=== PATIENT | female | born 2000 | race Two or more races ===

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

== ENCOUNTER 2021-03-26 12:51 | Emergency (ER) | payer OTHER ==
--- NOTE | 2021-03-26 14:12 | XR ---
EXAMINATION TYPE: PA chest with left rib series, 5 views DATE OF EXAM: 03/26/2021 Comparison: 05/06/2018 Clinical History: 20 year-old female with left anterior rib pain Findings: The cardiomediastinal silhouette, aorta, and pulmonary vasculature are within normal limits. Lungs and pleural spaces are clear. No acute or healing left-sided rib fracture or other bony abnormality identified. Impression: No acute cardiopulmonary process. No discrete radiographic abnormality of the left-sided ribs.
[2021-03-26 14:35] LABS: Appearance,Urine Turbid (Clear); Bacteria,Urine Rare /hpf; Bilirubin,Urine Negative (Negative); Blood,Urine Negative (Negative); Color,Urine Yellow; Glucose,Urine (UA) Negative (Negative); Hyaline Casts,Urine 3 /lpf (0-2); Ketones,Urine Negative (Negative); Leukocyte Esterase,Urine Large (Negative); Mucus,Urine Moderate /hpf; Nitrite,Urine Negative (Negative); PH, Urine 5.5 (5.0-8.0); Protein,Urine 1+ (Negative); RBC,Urine 10 /hpf (0-5); Specific Gravity,Urine 1.028 (1.001-1.035); Squamous Epithelial Cell,Urine 85 /hpf (0-4); Urobilinogen,Urine <2.0 mg/dL (<2.0); WBC,Urine 20 /hpf (0-5)
--- NOTE | 2021-03-26 14:53 | ED ---
Abdominal Pain HPI - General Chief Complaint: Abdominal Pain Stated Complaint: upper abd pain/bulge & near syncope Time Seen by Provider: 03/26/21 13:12 Source: patient Mode of arrival: ambulatory Limitations: no limitations - History of Present Illness Initial Comments: 20-year-old female presents to the emergency department with a chief complaint of abdominal pain on the left side. Patient reports the pain started about 2 days ago. Patient reports it feels like it is in the ribs rather than the abdomen. She did report feeling nauseous when there was a sudden onset of pain in the same state positional in nature. She can feel a "lump" on the left lower ribs. She denies any popping sensation in the region. She denies any diarrhea or constipation. Denies any urinary or vaginal symptoms. Denies any chest pain or shortness of breath. - Related Data Previous Rx's Medication Instructions Recorded Cephalexin [Keflex] 500 mg PO Q12HR #20 cap 10/16/17 Metoclopramide HCl [Reglan] 10 mg PO Q6HR PRN #15 tablet 05/06/18 Allergies Allergy/AdvReac Type Severity Reaction Status Date / Time No Known Allergies Allergy Verified 03/26/21 13:07 Review of Systems ROS Statement: Those systems with pertinent positive or pertinent negative responses have been documented in the HPI. ROS Other: All systems not noted in ROS Statement are negative. Past Medical History Past Medical History: No Reported History History of Any Multi-Drug Resistant Organisms: None Reported Past Surgical History: Adenoidectomy Past Psychological History: No Psychological Hx Reported Smoking Status: Never smoker Past Alcohol Use History: Occasional Past Drug Use History: None Reported General Exam Limitations: no limitations General appearance: alert, in no apparent distress Head exam: Present: atraumatic, normocephalic, normal inspection Eye exam: Present: normal appearance, PERRL, EOMI Pupils: Present: normal accommodation ENT exam: Present: normal exam, normal oropharynx, mucous membranes moist Neck exam: Present: normal inspection, full ROM. Absent: tenderness Respiratory exam: Present: normal lung sounds bilaterally, chest wall tenderness (Left lower ribs tenderness.). Absent: respiratory distress, wheezes, rales, rhonchi, stridor Cardiovascular Exam: Present: regular rate, normal rhythm, normal heart sounds. Absent: systolic murmur GI/Abdominal exam: Present: soft, tenderness (Tenderness on the left upper quadrant region over the ridge of the ribs. No abdominal tenderness). Absent: distended, guarding, rebound, rigid Extremities exam: Present: normal inspection, full ROM. Absent: tenderness Back exam: Present: normal inspection, full ROM. Absent: tenderness, CVA tenderness (R), CVA tenderness (L) Neurological exam: Present: alert, oriented X3 Psychiatric exam: Present: normal affect, normal mood Skin exam: Present: warm, dry, intact, normal color Course Vital Signs 03/26/21 03/26/21 13:04 15:23 Temperature 98.3 F Pulse Rate 89 70 Respiratory 18 17 Rate Blood Pressure 120/79 120/75 O2 Sat by Pulse 98 98 Oximetry Medical Decision Making - Medical Decision Making 20-year-old female presents to the emergency department with a chief complaint of abdominal pain on the left side. On physical examination, tenderness over the left lower several ribs. This appears to more chest wall pain rather than abdominal pain. Patient's mother was requesting STD testing and UA.Trichomonas is negative. UA was a contaminated sample. Patient states there was not a clean catch sample. It does show elevated leukocyte esterase or blood cells. Patient however does not appear to complain of any UTI like or vaginal symptoms. So I will not treat the patient. Gonorrhea and chlamydia pending. Offered treatment, she declined. Advised the patient to follow with primary care physician. Return parameters were thoroughly discussed with patient is understanding and agreeable. Case discussed with Dr. Chun. - Lab Data Lab Results 03/26/21 03/26/21 03/26/21 Range/Units 13:57 13:57 13:57 Urine Color Yellow Urine Appearance Turbid H (Clear) Urine pH 5.5 (5.0-8.0) Ur Specific [place] 1.028 (1.001-1.035) Urine Protein 1+ H (Negative) Urine Glucose (UA) Negative (Negative) Urine Ketones Negative (Negative) Urine Blood Negative (Negative) Urine Nitrite Negative (Negative) Urine Bilirubin Negative (Negative) Urine Urobilinogen <2.0 (<2.0) mg/dL Ur Leukocyte Esterase Large H (Negative) Urine RBC 10 H (0-5) /hpf Urine WBC 20 H (0-5) /hpf Ur Squamous Epith Cells 85 H (0-4) /hpf Urine Bacteria Rare H (None) /hpf Hyaline Casts 3 H (0-2) /lpf Urine Mucus Moderate H (None) /hpf Urine HCG, Qual Not Detected (Not Detectd) Trichomonas Ag (Rapid) Negative (Negative) Disposition Clinical Impression: Chest wall pain Disposition: HOME SELF-CARE Condition: Stable Instructions (If sedation given, give patient instructions): Chest Pain (DC) Additional Instructions: Please return to the Emergency Department if symptoms worsen or any other concerns. Is patient prescribed a controlled substance at d/c from ED?: No Referrals: None,Stated [Primary Care Provider] - 1-2 days Time of Disposition: 15:09
[2021-03-26 15:24] VITALS: BP 120/75; PULSE 70; RESP 17; TEMP 98.3
== END 2021-03-26 15:24 | disposition home or self-care (01) ==
LOC: EC 12:51
DX: R07.89 Other chest pain (principal); R10.12 Left upper quadrant pain; R11.0 Nausea
CPT/HCPCS: 81001; 81025; 87086; 87491; 87591; 87808; 99284

== ENCOUNTER → 2021-05-25 | Outpatient (CLI) | payer OTHER ==
[2021-05-25 22:37] LABS: HCT 36.5 % (37.2-46.3); HGB 12.8 g/dL (12.0-15.0); MCH 32.8 pg (27.0-32.0); MCHC 35.1 g/dL (32.0-37.0); MCV 93.6 fL (80.0-97.0); Platelet Count 331 X 10*3/uL (140-440); WBC 12.37 X 10*3/uL (4.50-10.00)
[2021-05-26 02:34] LABS: Hepatitis B Surface Antigen Nonreactive (Nonreactive)
[2021-05-26 06:37] LABS: HIV 2 AB Non-Reactive (Non-Reactive); HIV AB P24 Non-Reactive (Non-Reactive); HIV P24 AG Non-Reactive (Non-Reactive)
== END | disposition home or self-care (01) ==
LOC: LABWHC1 15:32
PROVIDERS: ATTEND Physician Assistant
DX: Z34.90 Encounter for supervision of normal pregnancy, unspecified, unspecified trimester (principal)
CPT/HCPCS: 36415; 84702; 85027; 86762; 86850; 86900; 86901; 87340; 87390

== ENCOUNTER 2021-06-19 08:07 | Emergency (ER) | payer OTHER ==
[2021-06-19 08:24] VITALS: TEMP 98.1
[2021-06-19] MEDS ORDERED: SODIUM CHLORIDE 0.9% 1,000 ML IV ONE (08:27)
[2021-06-19 09:04] LABS: Basophils % (A) 0 %; Eosinophils % (A) 0 %; HCT 38.2 % (34.0-46.0); HGB 13.1 gm/dL (11.4-16.0); Lymphocytes # (A) 2.1 k/uL (1.0-4.8); Lymphocytes % (A) 17 %; MCH 32.7 pg (25.0-35.0); MCHC 34.4 g/dL (31.0-37.0); Mean Platelet Volume 6.7; Monocytes # (A) 0.6 k/uL (0-1.0); Monocytes % (A) 5 %; Neutrophils # (A) 9.5 k/uL (1.3-7.7); Neutrophils % (A) 76 %; Platelet Count 309 k/uL (150-450); RBC 4.02 m/uL (3.80-5.40); WBC 12.5 k/uL (3.8-10.6)
[2021-06-19 09:21] LABS: Appearance,Urine Cloudy (Clear); Bacteria,Urine Occasional /hpf; Bilirubin,Urine Negative (Negative); Blood,Urine Large (Negative); Color,Urine Yellow; Glucose,Urine (UA) Negative (Negative); Ketones,Urine Negative (Negative); Leukocyte Esterase,Urine Moderate (Negative); Mucus,Urine Few /hpf; Nitrite,Urine Negative (Negative); Protein,Urine 1+ (Negative); RBC,Urine >182 /hpf (0-5); Specific Gravity,Urine 1.028 (1.001-1.035); Squamous Epithelial Cell,Urine 23 /hpf (0-4); Urobilinogen,Urine <2.0 mg/dL (<2.0); WBC,Urine 29 /hpf (0-5)
[2021-06-19 09:30] LABS: African American GFR (CKD) >90 (>60 ml/min/1.73 sqM); Albumin 4.4 g/dL (3.5-5.0); Anion Gap 9 mmol/L; Blood Urea Nitrogen 10 mg/dL (7-17); Calcium 10.2 mg/dL (8.4-10.2); Carbon Dioxide 23 mmol/L (22-30); Chloride 105 mmol/L (98-107); Glucose 89 mg/dL (74-99); Non-African American GFR(CKD) >90 (>60 ml/min/1.73 sqM); Potassium 4.1 mmol/L (3.5-5.1); Sodium 137 mmol/L (137-145); Total Protein 7.9 g/dL (6.3-8.2)
[2021-06-19 09:31] LABS: ALT 27 U/L (4-34); AST 28 U/L (14-36); Alkaline Phosphatase 68 U/L (38-126); Total Bilirubin 0.4 mg/dL (0.2-1.3)
--- NOTE | 2021-06-19 09:53 | US ---
EXAMINATION TYPE: Ultrasound OB <= 14 week fetus DATE OF EXAM: 06/19/2021 9:22 AM COMPARISON: NONE CLINICAL HISTORY: 21-year-old female pain. Bleeding x 1 day EXAM PERFORMED: Transabdominal (TA) FINDINGS: EXAM MEASUREMENTS: GESTATIONAL AGE / DATING Physician Established: (7 weeks/4 days) EDC: 02/01/2022 Dates by LMP: (9 weeks/0 days) EDC: 01/22/2022 Dates by First Scan: No previous this is first scan Dates by Current Scan for: (7 weeks/0 days +/- 4 days) EDC: 02/05/2022 MATERNAL ANATOMY Uterus: 8.5 x 6.2 x 7.0cm Right Ovary: 3.1 x 1.7 x 1.8cm Left Ovary: 3.3 x 2.8 x 2.8cm Post CDS / Adnexa: wnl Presence of free fluid: wnl Presence of corpus luteal cyst: left ovary: 2.1 x 1.7 x 1.7cm Presence of subchorionic bleed: 1.7 x 1.2 x 1.6cm right of gestational sac GESTATION / SURVEY CRL: 1.0cm (7 weeks/0 days) MSD: ( weeks/ days) Yolk Sac (normal less than 6mm): 0.4cm Heart Rate: 159 bpm Rhythm: Normal IUP: Viable IUP Date of LMP: 04/17/2021 Beta HcG (if available): Not available at time of exam Laboratory Analyst notes: Viable single IUP measuring 7 weeks 0 days with a heart rate o 159bpm and an estim ated delivery date of 02/05/2022, probable 1.7cm subchorionic bleed. IMPRESSION: 1. Single live intrauterine with established gestational age of 7 weeks 4 days. Current ult rasound biometry is smaller and just barely concordant (7 weeks 0 days). 2. Small to moderate-sized perigestational bleed measuring 1.7 cm toward the right side of the gestat ional sac. Follow-up as clinically indicated. 3. A 2.1 cm left corpus luteal cyst. 4. Otherwise, complete survey recommended at 18-20 weeks.
[2021-06-19] MEDS ORDERED: Rhogam IMMUNE GLOBULIN 1,500 UNIT/1 ML IM ONE (10:05)
[2021-06-19] MEDS ORDERED: cefTRIAXone IN SWFI 1,000 MG/10 ML SYRINGE IVP STA (10:22)
--- NOTE | 2021-06-19 10:27 | ED ---
Female Urogenital HPI - General Chief complaint: Vaginal Bleeding Stated complaint: 8 wks preg, vag bleeding Time Seen by Provider: 06/19/21 08:27 Source: patient, RN notes reviewed Mode of arrival: ambulatory Limitations: physical limitation - History of Present Illness Initial comments: Patient is a 21-year-old female that presents to the emergency department complaining of vaginal bleeding times one. She notes that she is approximately 8 weeks and has called her LABORATORY WORKER is supple appointment but has not been able to get in yet. She notes that this morning while walking to her car she noted some bleeding so she came to the emergency room to get evaluated. She denied any abdominal cramping or pain. She denied any falls or trauma. She was otherwise well-appearing in no apparent distress. She denied chest pain shortness breath headache nausea vomiting diarrhea constipation fever fatigue chills. Last Menstrual Period: 04/17/21 - Related Data Previous Rx's Medication Instructions Recorded Cephalexin [Keflex] 500 mg PO Q12HR #20 cap 10/16/17 Metoclopramide HCl [Reglan] 10 mg PO Q6HR PRN #15 tablet 05/06/18 Allergies Allergy/AdvReac Type Severity Reaction Status Date / Time No Known Allergies Allergy Verified 06/19/21 08:24 Review of Systems ROS Statement: Those systems with pertinent positive or pertinent negative responses have been documented in the HPI. ROS Other: All systems not noted in ROS Statement are negative. Past Medical History Past Medical History: No Reported History History of Any Multi-Drug Resistant Organisms: None Reported Past Surgical History: Adenoidectomy Past Psychological History: No Psychological Hx Reported Smoking Status: Never smoker Past Alcohol Use History: Occasional Past Drug Use History: None Reported General Exam Limitations: physical limitation General appearance: alert, in no apparent distress Head exam: Present: atraumatic, normocephalic, normal inspection Eye exam: Present: normal appearance, PERRL, EOMI. Absent: scleral icterus, conjunctival injection, periorbital swelling ENT exam: Present: normal exam, mucous membranes moist Neck exam: Present: normal inspection Respiratory exam: Present: normal lung sounds bilaterally. Absent: respiratory distress, wheezes, rales, rhonchi, stridor Cardiovascular Exam: Present: regular rate, normal rhythm, normal heart sounds. Absent: systolic murmur, diastolic murmur, rubs, gallop, clicks GI/Abdominal exam: Present: soft, normal bowel sounds. Absent: distended, tenderness, guarding, rebound, rigid Extremities exam: Present: normal inspection, full ROM, normal capillary refill. Absent: tenderness, pedal edema, joint swelling, calf tenderness Neurological exam: Present: alert, oriented X3 Psychiatric exam: Present: normal affect, normal mood Skin exam: Present: warm, dry, intact, normal color. Absent: rash Course Vital Signs 06/19/21 08:20 Temperature 98.1 F Pulse Rate 84 Respiratory 18 Rate Blood Pressure 108/71 O2 Sat by Pulse 100 Oximetry Medical Decision Making - Medical Decision Making 21-year-old female with vaginal bleeding 8 weeks . Labs, ultrasound, 1 L normal saline ordered. Labs: CBC and CMP unremarkable, urinalysis shows many red and white blood cells with occasional bacteria. Type and screen showed patient was Rh-, RhoGAM ordered. 1 g Rocephin ordered for possible UTI. Patient is agreeable to discharge home with follow-up to primary care and LABORATORY WORKER Case discussed with Dr. Shaw, patient can discharge home with follow-up to LABORATORY WORKER. - Lab Data Result diagrams: 06/19/21 08:44 06/19/21 08:44 Lab Results 06/19/21 06/19/21 06/19/21 Range/Units 08:44 08:44 08:44 WBC 12.5 H (3.8-10.6) k/uL RBC 4.02 (3.80-5.40) m/uL Hgb 13.1 (11.4-16.0) gm/dL Hct 38.2 (34.0-46.0) % MCV 95.0 (80.0-100.0) fL MCH 32.7 (25.0-35.0) pg MCHC 34.4 (31.0-37.0) g/dL RDW 12.0 (11.5-15.5) % Plt Count 309 (150-450) k/uL MPV 6.7 Neutrophils % 76 % Lymphocytes % 17 % Monocytes % 5 % Eosinophils % 0 % Basophils % 0 % Neutrophils # 9.5 H (1.3-7.7) k/uL Lymphocytes # 2.1 (1.0-4.8) k/uL Monocytes # 0.6 (0-1.0) k/uL Eosinophils # 0.0 (0-0.7) k/uL Basophils # 0.0 (0-0.2) k/uL Sodium (137-145) mmol/L Potassium (3.5-5.1) mmol/L Chloride (98-107) mmol/L Carbon Dioxide (22-30) mmol/L Anion Gap mmol/L BUN (7-17) mg/dL Creatinine (0.52-1.04) mg/dL Est GFR (CKD-EPI)AfAm (>60 ml/min/1.73 sqM) Est GFR (CKD-EPI)NonAf (>60 ml/min/1.73 sqM) Glucose (74-99) mg/dL Calcium (8.4-10.2) mg/dL Total Bilirubin (0.2-1.3) mg/dL AST (14-36) U/L ALT (4-34) U/L Alkaline Phosphatase (38-126) U/L Total Protein (6.3-8.2) g/dL Albumin (3.5-5.0) g/dL Urine Color Yellow Urine Appearance Cloudy H (Clear) Urine pH 6.0 (5.0-8.0) Ur Specific [place] 1.028 (1.001-1.035) Urine Protein 1+ H (Negative) Urine Glucose (UA) Negative (Negative) Urine Ketones Negative (Negative) Urine Blood Large H (Negative) Urine Nitrite Negative (Negative) Urine Bilirubin Negative (Negative) Urine Urobilinogen <2.0 (<2.0) mg/dL Ur Leukocyte Esterase Moderate H (Negative) Urine RBC >182 H (0-5) /hpf Urine WBC 29 H (0-5) /hpf Ur Squamous Epith Cells 23 H (0-4) /hpf Urine Bacteria Occasional H (None) /hpf Urine Mucus Few H (None) /hpf Urine HCG, Qual Detected (Not Detectd) Blood Type Blood Type Recheck Bld Type Recheck Status 06/19/21 06/19/21 Range/Units 08:44 08:44 WBC (3.8-10.6) k/uL RBC (3.80-5.40) m/uL Hgb (11.4-16.0) gm/dL Hct (34.0-46.0) % MCV (80.0-100.0) fL MCH (25.0-35.0) pg MCHC (31.0-37.0) g/dL RDW (11.5-15.5) % Plt Count (150-450) k/uL MPV Neutrophils % % Lymphocytes % % Monocytes % % Eosinophils % % Basophils % % Neutrophils # (1.3-7.7) k/uL Lymphocytes # (1.0-4.8) k/uL Monocytes # (0-1.0) k/uL Eosinophils # (0-0.7) k/uL Basophils # (0-0.2) k/uL Sodium 137 (137-145) mmol/L Potassium 4.1 (3.5-5.1) mmol/L Chloride 105 (98-107) mmol/L Carbon Dioxide 23 (22-30) mmol/L Anion Gap 9 mmol/L BUN 10 (7-17) mg/dL Creatinine 0.72 (0.52-1.04) mg/dL Est GFR (CKD-EPI)AfAm >90 (>60 ml/min/1.73 sqM) Est GFR (CKD-EPI)NonAf >90 (>60 ml/min/1.73 sqM) Glucose 89 (74-99) mg/dL Calcium 10.2 (8.4-10.2) mg/dL Total Bilirubin 0.4 (0.2-1.3) mg/dL AST 28 (14-36) U/L ALT 27 (4-34) U/L Alkaline Phosphatase 68 (38-126) U/L Total Protein 7.9 (6.3-8.2) g/dL Albumin 4.4 (3.5-5.0) g/dL Urine Color Urine Appearance (Clear) Urine pH (5.0-8.0) Ur Specific [place] (1.001-1.035) Urine Protein (Negative) Urine Glucose (UA) (Negative) Urine Ketones (Negative) Urine Blood (Negative) Urine Nitrite (Negative) Urine Bilirubin (Negative) Urine Urobilinogen (<2.0) mg/dL Ur Leukocyte Esterase (Negative) Urine RBC (0-5) /hpf Urine WBC (0-5) /hpf Ur Squamous Epith Cells (0-4) /hpf Urine Bacteria (None) /hpf Urine Mucus (None) /hpf Urine HCG, Qual (Not Detectd) Blood Type O Negative Blood Type Recheck O Neg Bld Type Recheck Status No - Radiology Data Radiology results: report reviewed, image reviewed Ultrasound: Single live intrauterine with established that states no age of 7 weeks 4 days. Current ultrasound biometry is smaller in just barely concordant was 7 weeks. Small to moderate-sized. Gestational bleed measuring 1.7 cm toward the right side of the gestational sac. Follow-up as clinically indicated. A 2.1 cm left corpus luteal cyst. Otherwise complete survey recommended an 18-20 weeks. Disposition Clinical Impression: Dysfunctional uterine bleeding, Threatened Disposition: HOME SELF-CARE Condition: Stable Instructions (If sedation given, give patient instructions): Dysmenorrhea (ED) Additional Instructions: Please return to the Emergency Department if symptoms worsen or any other concerns. Follow-up primary care 1-2 days. Follow-up with LABORATORY WORKER as soon as possible. Is patient prescribed a controlled substance at d/c from ED?: No Referrals: None,Stated [Primary Care Provider] - 1-2 days Time of Disposition: 10:27
[2021-06-19 10:28] LABS: HCG,Quantitative Serum 73489.5 mIU/mL
[2021-06-19 10:51] VITALS: RESP 16
[2021-06-19 12:39] VITALS: BP 110/62; PULSE 80
== END 2021-06-19 12:39 | disposition home or self-care (01) ==
LOC: EC 08:07
DX: O20.0 Threatened abortion (principal); Z3A.08 8 weeks gestation of pregnancy
CPT/HCPCS: 99284; 96374; 96372; 36415; 86900; 86901; 80053; 85025; 86850; 81001; 81025; 84702; 87086; 76801; J2790; J0696

== ENCOUNTER 2022-01-25 06:15 | Inpatient (IN) | payer OTHER ==
[2022-01-25] MEDS: LACTATED RINGERS 1,000 ML IV SCH ×3 (07:00→13:00)
[2022-01-25] MEDS ORDERED: OXYTOCIN 10 UNIT/ML 1 ML VIAL IM PRN (07:12)
[2022-01-25] MEDS ORDERED: TERBUTALINE 1 MG/ML VIAL SQ PRN (07:12)
[2022-01-25] MEDS ORDERED: METHYLERGONOVINE 0.2 MG/ML 1 ML AMP IM PRN (07:12)
[2022-01-25] MEDS ORDERED: CARBOPROST TROMETHAMINE 250 MCG/ML 1 ML AMP IM PRN (07:12)
[2022-01-25] MEDS ORDERED: LIDOCAINE 0.5% (PF) 5 MG/ML (50 ML SDV) SQ PRN (07:12)
[2022-01-25] MEDS ORDERED: OXYTOCIN 30 UNITS/500 ML NS 30 UNIT in SALINE 1 500ML.BAG IV SCH ×2 (07:15→16:45)
[2022-01-25 07:31] LABS: Basophils % (A) 0 %; Eosinophils # (A) 0.1 k/uL (0-0.7); Eosinophils % (A) 1 %; HCT 34.6 % (34.0-46.0); HGB 11.7 gm/dL (11.4-16.0); Lymphocytes # (A) 1.8 k/uL (1.0-4.8); Lymphocytes % (A) 14 %; MCH 32.2 pg (25.0-35.0); MCHC 33.7 g/dL (31.0-37.0); MCV 95.5 fL (80.0-100.0); Mean Platelet Volume 7.4; Monocytes # (A) 0.7 k/uL (0-1.0); Monocytes % (A) 5 %; Neutrophils # (A) 10.8 k/uL (1.3-7.7); Neutrophils % (A) 80 %; Platelet Count 232 k/uL (150-450); RBC 3.63 m/uL (3.80-5.40); RDW 12.9 % (11.5-15.5); WBC 13.5 k/uL (3.8-10.6)
[2022-01-25] MEDS ORDERED: BUTORPHANOL 1 MG/ML 1 ML VIAL IV PRN (09:11)
[2022-01-25] MEDS ORDERED: ROPIVACAINE 100 MG, fentaNYL (PF). 200 MCG in SODIUM CHLORIDE 0.9% 76 ML EPIDURAL ONE (13:01)
--- NOTE | 2022-01-25 16:32 | P.HPOB ---
History of Present Illness H&P Date: 01/25/22 Chief Complaint: IUP @ 39 weeks This is a 21-year-old 1 para 0 at 39 weeks gestation that presents for elective induction of labor. Patient is receiving routine care with myself which is been essentially uncomplicated. This morning patient states she feels well she denies loss of fluid vaginal bleeding and does note good movement. On bloodwork this patient has a blood type of O negative , rubella status is noted to be nonimmune, hepatitis B surface antigen is negative, RPR is nonreactive, HIV is negative. Review of Systems Constitutional: Denies chills, Denies fatigue, Denies fever Ears, nose, mouth and throat: Denies headache Cardiovascular: Reports leg edema Respiratory: Denies dyspnea Gastrointestinal: Denies constipation, Denies diarrhea, Denies nausea, Denies vomiting Genitourinary: Reports Past Medical History Past Medical History: No Reported History History of Any Multi-Drug Resistant Organisms: None Reported Past Surgical History: Adenoidectomy Past Anesthesia/Blood Transfusion Reactions: No Reported Reaction Past Psychological History: No Psychological Hx Reported Smoking Status: Never smoker Past Alcohol Use History: None Reported Past Drug Use History: None Reported Medications and Allergies Home Medications Medication Instructions Recorded Confirmed Type Aspirin [Adult Low Dose Aspirin EC] 81 mg PO DAILY 01/25/22 01/25/22 History Vits96/Iron Fum/Folic 1 each PO DAILY 01/25/22 01/25/22 History [ Tablet] Allergies Allergy/AdvReac Type Severity Reaction Status Date / Time No Known Allergies Allergy Verified 01/25/22 07:12 Exam Osteopathic Statement: *. No significant issues noted on an osteopathic structural exam other than those noted in the History and Physical/Consult. 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 heart tones are noted to be category 1 and she is lata irregularly. Results Result Diagrams: 01/25/22 07:00 Abnormal Lab Results - Last 24 Hours (Table) 01/25/22 Range/Units 07:00 WBC 13.5 H (3.8-10.6) k/uL RBC 3.63 L (3.80-5.40) m/uL Neutrophils # 10.8 H (1.3-7.7) k/uL Assessment and Plan (1) Term Current Visit: Yes Status: Acute Code(s): Z34.90 - ENCNTR FOR SUPRVSN OF NORMAL , UNSP, UNSP TRIMESTER SNOMED Code(s): 17814860 Plan: 21-year-old 1 para 0 at 39 weeks of gestation presents for induction of labor. Patient is admitted to labor and delivery and Pitocin induction of labor is begun per hospital protocol. Options for analgesia during labor discussed including Stadol and epidural, she will consider. We'll continue close monitoring and anticipate spontaneous vaginal delivery later today.
[2022-01-25] MEDS ORDERED: LANOLIN CREAM 5 GM TUBE TOPICAL PRN (16:34)
[2022-01-25] MEDS ORDERED: HYDROCORTISONE 2.5% RECTAL CREAM 30 GM TUBE RECTAL PRN (16:34)
[2022-01-25] MEDS ORDERED: diphenhydrAMINE 50 MG CAP PO PRN (16:34)
[2022-01-25] MEDS ORDERED: SIMETHICONE 80 MG CHEWABLE PO PRN (16:34)
[2022-01-25] MEDS ORDERED: ACETAMINOPHEN TAB 325 MG TAB PO PRN (16:34)
[2022-01-25] MEDS ORDERED: BENZOCAINE/MENTHOL SPRAY 1 GM/SPRAY AEROSOL TOPICAL PRN (16:34)
[2022-01-25] MEDS ORDERED: diphenhydrAMINE 50 MG/ML 1 ML VIAL IVP PRN ×2 (16:34)
[2022-01-25] MEDS ORDERED: ZOLPIDEM 5 MG TAB PO PRN (16:34)
[2022-01-25] MEDS ORDERED: diphenhydrAMINE 25 MG CAP PO PRN (16:34)
--- NOTE | 2022-01-25 16:34 | P.PROBDLV ---
Vaginal Delivery Note - . Vaginal Delivery Note: Findings: Viable female delivered at 1604, weight of 6 lbs. 13 oz., Apgars of 9 and 10 at one and 5 minutes respectively. This is a 21-year-old 1 para 0 that presented to labor and delivery at 39 0/7 weeks for induction of labor. Patient was receiving routine care which has been essentially uncomplicated. Patient was admitted to labor and delivery and Pitocin induction of labor was begun. Patient did undergo amniotomy and clear fluid was obtained. Patient progressed through labor eventually becoming uncomfortable and requesting epidural placement. Patient had epidural placed without difficulty by the anesthesia department. Patient quickly progressed to complete and was placed in a modified lithotomy position. With excellent maternal effort patient pushed the down to presentation with additional pushes the anterior/posterior shoulder were delivered. The body was delivered and placed on the maternal abdomen. After two-minute delayed the umbilical cord was doubly clamped and cut. A spontaneous cry was noted at . The placenta was then delivered spontaneously intact with a three-vessel cord being noted. On inspection the patient's vaginal vault 2 small lacerations were appreciated one lateral sidewall and 1 midline vaginal. These were repaired in usual fashion with 3-0 Rapide. Hemostasis was appreciated after repair. The uterus was noted be firm and below the umbilicus at this time. Just after delivery of the placenta the bladder was drained for 600 mL of clear yellow urine. Estimated blood loss 200 mL. All counts were noted to be correct 2 at the end of the delivery. Patient and infant tolerated delivery well and are resting comfortably.
[2022-01-25 16:50] VITALS: RESP 16
[2022-01-25] MEDS ORDERED: MEASLES-MUMPS-RUBELLA VACC/PF 12,500 UNIT/0.5 ML VIAL SQ ONE (17:38)
[2022-01-25] MEDS: IBUPROFEN 600 MG TAB PO SCH (19:00)
[2022-01-25] MEDS: SENNOSIDES-DOCUSATE SODIUM 1 EACH TAB PO SCH (20:08)
[2022-01-26] MEDS: IBUPROFEN 600 MG TAB PO SCH (00:25)
[2022-01-26] MEDS: SENNOSIDES-DOCUSATE SODIUM 1 EACH TAB PO SCH (08:09)
--- NOTE | 2022-01-26 08:47 | P.DS ---
Providers Date of admission: 01/25/22 06:20 Expected date of discharge: 01/26/22 Attending physician: Mellissa Jaffe Primary care physician: Stated None - Discharge Diagnosis(es) (1) Term Current Visit: Yes Status: Acute (2) Status post normal vaginal delivery Current Visit: Yes Status: Acute (3) Obstetric vaginal laceration with first degree perineal laceration Current Visit: Yes Status: Acute Hospital Course: 21 yo G1 now para 1 that presented to labor and delivery yesterday at 39-0/7 weeks for induction of labor. Patient had been receiving routine care that was essentially uncomplicated. For full details on this patient please see the dictated history and physical. Patient was admitted to labor and delivery and Pitocin induction of labor was begun amniotomy is performed and clear fluid was obtained. Patient progressed through labor eventually becoming uncomfortable requesting epidural placement. Patient progressed to complete began pushing and had a normal spontaneous vaginal delivery of a viable female at 1604, weight of 6 lbs. 13 oz., Apgars of 9 and 10 at one and 5 minutes respectively. Patient has done well . On this day #1 she is ambulating and voiding without difficulty. She is tolerating a regular diet without nausea or vomiting. She states her pain is well-controlled and she denies concerns. She would like discharge home at 24 hours if possible. Patient Condition at Discharge: Good Plan - Discharge Summary New Discharge Prescriptions: No Action Vits96/Iron Fum/Folic [ Tablet] 1 each PO DAILY Aspirin [Adult Low Dose Aspirin EC] 81 mg PO DAILY Discharge Medication List Aspirin [Adult Low Dose Aspirin EC] 81 mg PO DAILY 01/25/22 [History] Vits96/Iron Fum/Folic [ Tablet] 1 each PO DAILY 01/25/22 [History] Follow up Appointment(s)/Referral(s): Mellissa Jaffe DO [Doctor of Osteopathic Medicine] - 4 Weeks Patient Instructions/Handouts: Vaginal Delivery (DC), Vaginal Delivery (GEN) Discharge Disposition: HOME SELF-CARE
[2022-01-26] MEDS ORDERED: PRENATAL VIT-IRON-FOLIC ACID 1 EACH TABLET PO SCH (09:00)
[2022-01-26 17:16] VITALS: BP 106/66; PULSE 98; TEMP 98.1
== END 2022-01-26 16:45 | disposition home or self-care (01) | DRG 807 ==
LOC: 4FBP 06:20
PROVIDERS: ADMIT Obstetrics & Gynecology Obstetrics; ATTEND Obstetrics & Gynecology Obstetrics
PROC: 3E033VJ Introduction of Other Hormone into Peripheral Vein, Percutaneous Approach (ICD-10-PCS; principal; 2022-01-25)
PROC: 4A0HXCZ Measurement of Products of Conception, Cardiac Rate, External Approach (ICD-10-PCS; principal; 2022-01-25)
PROC: 10907ZC Drainage of Amniotic Fluid, Therapeutic from Products of Conception, Via Natural or Artificial Opening (ICD-10-PCS; principal; 2022-01-25)
PROC: 10E0XZZ Delivery of Products of Conception, External Approach (ICD-10-PCS; principal; 2022-01-25)
PROC: 0HQ9XZZ Repair Perineum Skin, External Approach (ICD-10-PCS; principal; 2022-01-25)
DX: O70.0 First degree perineal laceration during delivery (principal); Z37.0 Single live birth; Z3A.39 39 weeks gestation of pregnancy; Z79.82 Long term (current) use of aspirin
CPT/HCPCS: 85025; 86850; 86900; 86901; 90707

== ENCOUNTER 2023-09-14 15:24 | Outpatient (CLI) | payer MEDICAID, OTHER ==
[2023-09-14] MEDS: Rhogam IMMUNE GLOBULIN 1,500 UNIT/1 ML IM ONE (16:32)
== END 2023-09-14 16:37 | disposition home or self-care (01) ==
LOC: FBPOP 15:24
PROVIDERS: ATTEND Obstetrics & Gynecology Obstetrics
DX: O26.899 Other specified pregnancy related conditions, unspecified trimester (principal); Z36.9 Encounter for antenatal screening, unspecified; Z3A.00 Weeks of gestation of pregnancy not specified
CPT/HCPCS: 96372; J2790

== ENCOUNTER → 2023-09-14 | Outpatient (CLI) | payer MEDICAID, OTHER ==
[2023-09-15 03:52] LABS: Basophils # (A) 0.03 X 10*3/uL (0.00-0.10); Basophils % (A) 0.2 %; Eosinophils # (A) 0.09 X 10*3/uL (0.04-0.35); Eosinophils % (A) 0.7 %; HCT 34.9 % (37.2-46.3); HGB 11.6 g/dL (12.0-15.0); Lymphocytes % (A) 15.3 %; MCH 31.4 pg (27.0-32.0); MCHC 33.2 g/dL (32.0-37.0); MCV 94.3 FL (80.0-97.0); Mean Platelet Volume 9.5 FL (9.5-12.2); Monocytes % (A) 6.9 %; NRBC Per 100 WBC 0 X 10*3/uL (0.00-0.01); Neutrophils # (A) 9.96 X 10*3/uL (1.80-7.70); Neutrophils % (A) 76.3 %; Platelet Count 240 X 10*3/uL (140-440); RDW 12.8 % (11.5-14.5); WBC 13.06 X 10*3/uL (4.50-10.00)
== END | disposition home or self-care (01) ==
LOC: LABWHC1 14:00
PROVIDERS: ATTEND Obstetrics & Gynecology Obstetrics
DX: Z36.9 Encounter for antenatal screening, unspecified (principal); O26.899 Other specified pregnancy related conditions, unspecified trimester; Z3A.00 Weeks of gestation of pregnancy not specified
CPT/HCPCS: 36415; 82950; 85025; 86850; 86900; 86901

== ENCOUNTER 2023-12-02 07:33 | Inpatient (IN) | payer MEDICAID, OTHER ==
[2023-12-02] MEDS ORDERED: METHYLERGONOVINE 0.2 MG/ML 1 ML AMP IM PRN (07:46)
[2023-12-02] MEDS ORDERED: miSOPROStoL 200 MCG TAB PO PRN (07:46)
[2023-12-02] MEDS ORDERED: LIDOCAINE 0.5% (PF) 5 MG/ML (50 ML SDV) SQ PRN (07:46)
[2023-12-02] MEDS ORDERED: TERBUTALINE 1 MG/ML VIAL SQ PRN (07:46)
[2023-12-02] MEDS ORDERED: OXYTOCIN 10 UNIT/ML 1 ML VIAL IM PRN (07:46)
[2023-12-02] MEDS ORDERED: CARBOPROST TROMETHAMINE 250 MCG/ML 1 ML AMP IM PRN (07:46)
[2023-12-02] MEDS ORDERED: TRANEXAMIC 1,000 MG/100ML-NACL 1,000 MG in EMPTY BAG 1 BAG IV PRN (07:46)
[2023-12-02 08:03] LABS: Basophils % (A) 0 %; Eosinophils # (A) 0.1 k/uL (0-0.7); Eosinophils % (A) 0 %; HCT 36.2 % (34.0-46.0); HGB 11.7 gm/dL (11.4-16.0); Lymphocytes # (A) 1.6 k/uL (1.0-4.8); Lymphocytes % (A) 14 %; MCH 28.8 pg (25.0-35.0); MCHC 32.3 g/dL (31.0-37.0); MCV 89.1 fL (80.0-100.0); Monocytes # (A) 0.5 k/uL (0-1.0); Monocytes % (A) 4 %; Neutrophils # (A) 9.2 k/uL (1.3-7.7); Neutrophils % (A) 79 %; Platelet Count 191 k/uL (150-450); RBC 4.06 m/uL (3.80-5.40); WBC 11.6 k/uL (3.8-10.6)
[2023-12-02] MEDS: LACTATED RINGERS 1,000 ML IV SCH (08:28)
[2023-12-02] MEDS ORDERED: ROPIVACAINE 5 MG/ML 30 ML VIAL ONE (08:33)
[2023-12-02] MEDS ORDERED: SODIUM CHLORIDE 0.9% 250 ML BAG ONE (08:33)
[2023-12-02] MEDS ORDERED: fentaNYL (PF) 50 MCG/ML 5 ML AMP ONE (08:33)
[2023-12-02] MEDS: OXYTOCIN 30 UNITS/500 ML NS 30 UNIT in SALINE 1 500ML.BAG IV SCH (10:17)
--- NOTE | 2023-12-02 10:34 | P.PROBDLV ---
Vaginal Delivery Note - . Vaginal Delivery Note: Endings: Viable female delivered at 1013, weight of 7 pounds 9 ounces. 23-year-old at 39-5/7 weeks presented to labor and delivery with complaints of regular painful contractions. Patient was noted to be 6 cm upon admission. Patient requested epidural which was placed without difficulty by the anesthesia department. Patient underwent amniotomy and copious clear fluid was obtained. Patient progressed to complete began pushing and had a normal spontaneous vaginal delivery of a viable female at 1013, weight of 7 pounds 9 ounces. Apgars of 8 and 9 at 1 and 5 minutes respectively. After 2- minute delay the umbilical cord was doubly clamped and cut and the infant was handed to the maternal abdomen. Spontaneous cry was noted. The placenta was delivered spontaneously intact with a three-vessel cord being noted. On inspection the patient's vaginal vault a left vaginal mucosal laceration was appreciated, this was repaired with a [id number] suture of 3-0 Rapide. Hemostasis was noted after closure. Uterus was noted to be firm and below the umbilicus. All counts were noted be correct x 2, patient and infant tolerated delivery well and are resting comfortably Manage blood loss 100 cc
--- NOTE | 2023-12-02 10:35 | P.HPOB ---
History of Present Illness H&P Date: 12/02/23 Chief Complaint: IUP at 39+ weeks, active labor 23-year-old G2, P1 at 39+ weeks presents in active labor. Patient states contractions started early this morning and became regular and painful. Patient presented to labor and delivery and was noted to be 6 cm. Patient was admitted and requested epidural. Epidural was placed without difficulty by the anesthesia department. Patient has been receiving routine care with myself which has been essentially uncomplicated. Patient notes good movement and denies loss of fluid. On blood work this patient is a blood type of O-, rubella status immune, hepatitis B surface engine negative, HIV negative, RPR is nonreactive, group B strep culture is negative. Review of Systems Constitutional: Denies chills, Denies fatigue, Denies fever Ears, nose, mouth and throat: Denies headache Cardiovascular: Reports leg edema Respiratory: Denies dyspnea Gastrointestinal: Denies constipation, Denies diarrhea, Denies nausea, Denies vomiting Genitourinary: Reports Past Medical History Past Medical History: No Reported History History of Any Multi-Drug Resistant Organisms: None Reported Past Surgical History: Adenoidectomy Past Anesthesia/Blood Transfusion Reactions: No Reported Reaction Past Psychological History: No Psychological Hx Reported Smoking Status: Never smoker Past Alcohol Use History: None Reported Past Drug Use History: None Reported - Past Family History Mother Family Medical History: Cancer, Skin Disorder Medications and Allergies Home Medications Medication Instructions Recorded Confirmed Type Aspirin [Adult Low Dose Aspirin EC] 81 mg PO DAILY 01/25/22 12/02/23 History Vits96/Iron Fum/Folic 1 each PO DAILY 01/25/22 12/02/23 History [ Tablet] Allergies Allergy/AdvReac Type Severity Reaction Status Date / Time No Known Allergies Allergy Verified 12/02/23 07:45 Exam Osteopathic Statement: *. No significant issues noted on an osteopathic structural exam other than those noted in the History and Physical/Consult. Vital Signs Temp Pulse Resp BP Pulse Ox 12/02/23 08:23 98.6 F 89 16 121/75 98 Intake and Output 12/01/23 12/02/23 12/02/23 22:59 06:59 14:59 Other: Weight 84.368 kg Targeted physical exam is performed this date General is well-nourished well- developed female in no acute distress, breathing is noted to be nonlabored heart has a regular rate and rhythm, abdomen is gravid and appropriate for gestational age, on cervical exam she is 9/100/-1 station amniotomy was performed and copious clear fluid was obtained. heart tones noted to be category 1 and she is lata every 3 to 4 minutes. Results Result Diagrams: 12/02/23 07:50 Abnormal Lab Results - Last 24 Hours (Table) 12/02/23 Range/Units 07:50 WBC 11.6 H (3.8-10.6) k/uL Neutrophils # 9.2 H (1.3-7.7) k/uL Assessment and Plan (1) Active labor Current Visit: Yes Status: Acute Code(s): THH1800 - SNOMED Code(s): 208186658 (2) Term Current Visit: No Status: Acute Code(s): Z34.90 - ENCNTR FOR SUPRVSN OF NORMAL , UNSP, UNSP TRIMESTER SNOMED Code(s): 00611542 Plan: 23-year-old G2, P1 at 39+ weeks presents in active labor. Patient received epidural prior to my arrival. Patient is currently 9 cm anticipate spontaneous vaginal delivery.
[2023-12-02] MEDS ORDERED: HYDROCORTISONE 2.5% RECTAL CREAM 30 GM TUBE RECTAL PRN (11:04)
[2023-12-02] MEDS ORDERED: diphenhydrAMINE 50 MG/ML 1 ML VIAL IVP PRN ×2 (11:04)
[2023-12-02] MEDS ORDERED: LANOLIN CREAM 1 GM TUBE TOPICAL PRN (11:04)
[2023-12-02] MEDS ORDERED: BENZOCAINE/MENTHOL SPRAY 1 GM/SPRAY AEROSOL TOPICAL PRN (11:04)
[2023-12-02] MEDS ORDERED: ZOLPIDEM 5 MG TAB PO PRN (11:04)
[2023-12-02] MEDS ORDERED: SIMETHICONE 80 MG CHEWABLE PO PRN (11:04)
[2023-12-02] MEDS ORDERED: diphenhydrAMINE 50 MG CAP PO PRN (11:04)
[2023-12-02] MEDS ORDERED: diphenhydrAMINE 25 MG CAP PO PRN (11:04)
[2023-12-02] MEDS: ACETAMINOPHEN TAB 325 MG TAB PO PRN (20:35)
[2023-12-02] MEDS: SENNOSIDES-DOCUSATE SODIUM 1 EACH TAB PO SCH (20:36)
[2023-12-02] MEDS: IBUPROFEN 600 MG TAB PO PRN (23:28)
--- NOTE | 2023-12-03 08:26 | P.DS ---
Providers Date of admission: 12/02/23 07:43 Expected date of discharge: 12/03/23 Attending physician: Mellissa Jaffe Primary care physician: Stated None Hospital Course: Ms. Mccollum is a 23 year old now PPD#1 s/p normal spontaneous vaginal delivery. The patient is doing well this morning and had no acute events overnight. She has no complaints this morning. She reports minimal lochia, passing flatus, voiding without difficulty, ambulating, and eating/drinking without nausea or vomiting. doing well at bedside. She denies chest pain, shortness of breathing, fevers, or chills overnight. She denies pain or swelling in the legs. restrictions are reviewed with the patient including pelvic rest for 6 weeks. The patient is encouraged to call the office if she experiences any heavy bleeding, foul-smelling discharge, breast complaints, or any if she has any other concerns. She will follow up in the office with in 4 weeks for exam. She will take OTC Motrin and Tylenol as needed for pain. All questions are answered. Assessment: 23 year old now PPD#1 s/p Patient Condition at Discharge: Good Plan - Discharge Summary New Discharge Prescriptions: No Action Vits96/Iron Fum/Folic [ Tablet] 1 each PO DAILY Aspirin [Adult Low Dose Aspirin EC] 81 mg PO DAILY Discharge Medication List Aspirin [Adult Low Dose Aspirin EC] 81 mg PO DAILY 01/25/22 [History] Vits96/Iron Fum/Folic [ Tablet] 1 each PO DAILY 01/25/22 [History] Follow up Appointment(s)/Referral(s): Mellissa Jaffe DO [Doctor of Osteopathic Medicine] - 6 Weeks (PP 01/18/2024 @11:30Am) Activity/Diet/Wound Care/Special Instructions: Instructions 1. Do not begin any exercise program for 3 weeks. 2. Do not resume sexual relations for 6 weeks or longer if uncomfortable. 3. You may take tub baths or showers at any time. 4. You may use tampons if desired after 6 weeks. 5. Keep any areas repaired with stitches clean and dry. 6. If you are not nursing, wear a good fitting, supportive bra during the day and limit fluid intake for at least 1 week to prevent breast engorgement. 7. Call the office, , within the next week to make appointment for your 6 week checkup if it has not already been made. 8. Report any of the following occurrences to the doctor promptly: a. Heavy, excessive bleeding b. Chills, fever c. Burning or frequency of urination d. Pain or redness and breasts if nursing e. Increasing pain or swelling of vulva (stitches). In addition to the above instructions, the following additional should be followed: 1. No heavy lifting or straining (exercising) until after 6 week checkup. 2. Keep abdominal incision clean and dry: You may wear a dressing if more comfortable. 3. Make office appointment for 2 weeks after delivery date. Discharge Disposition: HOME SELF-CARE
[2023-12-03 09:08] VITALS: BP 124/83; PULSE 69; RESP 16; TEMP 98.9
== END 2023-12-03 11:57 | disposition home or self-care (01) | DRG 807 ==
LOC: FBPOP 07:33 → 4FBP 07:43
PROVIDERS: ADMIT Obstetrics & Gynecology Obstetrics; ATTEND Obstetrics & Gynecology Obstetrics
PROC: 10E0XZZ Delivery of Products of Conception, External Approach (ICD-10-PCS; principal; 2023-12-02)
PROC: 10907ZC Drainage of Amniotic Fluid, Therapeutic from Products of Conception, Via Natural or Artificial Opening (ICD-10-PCS; 2023-12-02)
PROC: 0UQMXZZ Repair Vulva, External Approach (ICD-10-PCS; 2023-12-02)
DX: O62.3 Precipitate labor (principal); Z37.0 Single live birth; O70.0 First degree perineal laceration during delivery; Z79.82 Long term (current) use of aspirin; Z3A.39 39 weeks gestation of pregnancy
CPT/HCPCS: 85025; 86850; 86900; 86901